=== PATIENT | female | born 1985 | race Caucasian/White ===

== ENCOUNTER 2019-07-31 04:52 | Inpatient (IN) | payer BC ==
[~2019-07-31 04:52] MED LIST: Lidocaine 2% with EPINEPHrine 1:200,000 20 ML SDV ONE
[2019-07-31] MEDS ORDERED: Sodium Chloride 0.9% 10 ML Syringe FLUSH PRN (07:06)
[2019-07-31] MEDS ORDERED: Oxytocin/Lactated Ringers 20 UNIT/1,000 ML BAG IV SCH (07:15)
[2019-07-31] MEDS ORDERED: Oxytocin/Lactated Ringers 10 UNIT/1,000 ML BAG IV SCH ×2 (07:15→08:00)
--- NOTE | 2019-07-31 07:54 | PCM.LDHP ---
L&D History of Present Illness - General Date of Service: 07/31/19 Admit Problem/Dx: Patient Status Order with Admit Dx/Problem 07/31/19 07:06 Patient Status [ADT] Routine Admission Diagnosis/Problem Admission Diagnosis/Problem Source of Information: Patient History Limitations: Reports: No Limitations - History of Present Illness Introduction:: 33 y/o MIKE 07/24/2019 EGA 41w0d presented to L&D for attempted TOLAC/ first delivery section Regressing maternal fever. Second delivery was a 6 lbs. 4 oz. first delivery weight 6 lbs. 8 oz. Patient understands risk of disruption of uterine scar emergency section. Aside ultrasound confirms cephalic presentation floating at present time not able ruptured membranes. Cervix is 1-2 cm dilated long soft posterior. 12/31/18 blood type O-positive, hemoglobin/hematocrit 13.2/38.4, or bone immune, urine culture no growth after 2 days, he surface antigen negative, HIV negative , GC chlamydia probe negative. 04/25/19 hemoglobin/hematocrit 11.0/33.2, platelets 253,000. OB glucose screen 122. VDRL nonreactive. 07/01/19 group B strep negative. Plan induction of labor utilizing Pitocin dilute solution (not candidate for Cytotec because previous uterine scar) Improves with: Reports: None Worsens with: Reports: None Associated Symptoms: Reports: N - Related Data Allergies/Adverse Reactions: Allergies Allergy/AdvReac Type Severity Reaction Status Date / Time shellfish derived Allergy Difficulty Verified 06/14/16 01:39 Breathing Home Medications: Home Meds No.116/Iron/Folic/Dha [Expecta Combo Pack] 1 each PO DAILY [History] Ibuprofen [IJD: Ibuprofen] 600 mg PO Q4H PRN #30 tablet 06/15/16 [Rx] Past Medical History - Past Health History Medical/Surgical History: Denies Medical/Surgical History - Past Surgical History Other Female Surgeries/Procedures: breast augmentation Social & Family History - Family History Family Medical History: Noncontributory - Caffeine Use Caffeine Use: Reports: None H&P Review of Systems - Review of Systems: Review Of Systems: See Below General: Reports: No Symptoms HEENT: Reports: No Symptoms Pulmonary: Reports: No Symptoms Cardiovascular: Reports: No Symptoms Gastrointestinal: Reports: No Symptoms Genitourinary: Reports: No Symptoms Musculoskeletal: Reports: No Symptoms Skin: Reports: No Symptoms Psychiatric: Reports: No Symptoms Neurological: Reports: No Symptoms Hematologic/Lymphatic: Reports: No Symptoms Immunologic: Reports: No Symptoms L&D Exam - Exam Exam: See Below - OB Specific Fundal Height In cm: 40 Movement: Active Heart Tones: Present Heart Tones per Min: 145 Heart Rate (FHR) Variability: Moderate (6-25 bmp) Presentation: Vertex (Floating and confirmed by bedside ultrasound is vertex) - Best Score Best Score Cervix Position: Posterior Best Score Consistency: Soft Best Score Effacement: 0-30% Best Score Dilation: 1-2 cm Best Score Infant's Station: -3 Best Score Total: 3 - Exam General: Alert, Oriented HEENT: Conjunctiva Clear, Mucosa Moist & [place] Neck: Supple, Trachea Midline Lungs: Clear to Auscultation, Normal Respiratory Effort Cardiovascular: Regular Rate, Regular Rhythm GI/Abdominal Exam: Normal Bowel Sounds, Soft, Non-Tender Genitourinary: Normal external exam Extremities: Normal Inspection, Non-Tender, No Pedal Edema, Normal Capillary Refill Skin: Warm, Dry, Intact Psychiatric: Alert, Normal Affect, Normal Mood - Patient Data Lab Results Last 24 hrs: Laboratory Results - last 24 hr 07/31/19 Range/Units 07:15 WBC 13.90 H (3.98-10.04) K/mm3 RBC 4.01 (3.98-5.22) M/mm3 Hgb 12.4 (11.2-15.7) gm/dl Hct 37.6 (34.1-44.9) % MCV 93.8 (79.4-94.8) fl MCH 30.9 (25.6-32.2) pg MCHC 33.0 (32.2-35.5) g/dl RDW Std Deviation 42.9 (36.4-46.3) fL Plt Count 257 (182-369) K/mm3 MPV 9.8 (9.4-12.3) fl Neut % (Auto) 72.6 H (34.0-71.1) % Lymph % (Auto) 16.2 L (19.3-51.7) % [place] % (Auto) 8.5 (4.7-12.5) % Eos % (Auto) 1.4 (0.7-5.8) Baso % (Auto) 0.2 (0.1-1.2) % Neut # (Auto) 10.10 H (1.56-6.13) K/mm3 Lymph # (Auto) 2.25 (1.18-3.74) K/mm3 [place] # (Auto) 1.18 H (0.24-0.36) K/mm3 Eos # (Auto) 0.19 (0.04-0.36) K/mm3 Baso # (Auto) 0.03 (0.01-0.08) K/mm3 Result Diagrams: 07/31/19 07:15 - Problem List (1) 41 weeks gestation of SNOMED Code(s): 76385242 ICD Code: Z3A.41 - 41 WEEKS GESTATION OF Status: Acute Current Visit: Yes (2) History of delivery, currently SNOMED Code(s): 323410372, 971374261 ICD Code: O34.219 - MATERNAL CARE FOR UNSP TYPE SCAR FROM PREVIOUS DEL Status: Acute Current Visit: Yes Problem List Initiated/Reviewed/Updated: No Orders Last 24hrs: Active Orders 24 hr Category Date Time Status Patient Status [ADT] Routine ADT 07/31/19 07:06 Active Activity as Tolerated [RC] PFP Care 07/31/19 07:06 Active Communication Order [RC] ASDIRECTED Care 07/31/19 07:06 Active Heart Tones [RC] ASDIRECTED Care 07/31/19 07:07 Active Non Stress Test [RC] PER UNIT ROUTINE Care 07/31/19 07:06 Active Notify Provider [RC] PFP Care 07/31/19 07:06 Active Notify Provider [RC] PRN Care 07/31/19 07:06 Active Peripheral IV Care [RC] . DIRECTED Care 07/31/19 07:07 Active Vital Signs [RC] PER UNIT ROUTINE Care 07/31/19 07:06 Active Regular Diet [DIET] Diet 07/31/19 Breakfast Active RAPID PLASMA REAGIN,RPR [CHEM] Routine Lab 07/31/19 07:15 Received TYPE AND SCREEN [BBK] Stat Lab 07/31/19 07:15 Received Lactated Ringers [Ringers, Lactated] 1,000 ml Med 07/31/19 07:15 Active IV ASDIRECTED Oxytocin/Lactated Ringers [Pitocin in LR 10 Units/1,000 Med 07/31/19 07:15 Active ML] 10 unit in 1,000 ml IV .CONTINUOUS Oxytocin/Lactated Ringers [Pitocin in LR 20 Units/1,000 Med 07/31/19 07:15 Active ML] 20 unit in 1,000 ml IV .CONTINUOUS Sodium Chloride 0.9% [Saline Flush] Med 07/31/19 07:06 Active 10 ml FLUSH ASDIRECTED PRN Electronic Heart Tones Ext w TOCO [WOMSER] Oth 07/31/19 07:06 Ordered Routine Electronic Heart Tones Internal [WOMSER] Per Unit Ot 07/31/19 07:06 Ordered Routine Peripheral IV Insertion Adult [OM.PC] Routine Ot 07/31/19 07:06 Ordered Resuscitation Status Routine Resus Stat 07/31/19 07:06 Ordered Medication Orders Lactated Ringer's (Ringers, Lactated) 1,000 mls @ 100 mls/hr IV ASDIRECTED RIP Oxytocin/Lactated Ringer's (Pitocin In Lr 10 Units/1,000 Ml) 10 unit in 1,000 mls @ 100 mls/hr IV .CONTINUOUS RIP Oxytocin/Lactated Ringer's (Pitocin In Lr 20 Units/1,000 Ml) 20 unit in 1,000 mls @ 500 mls/hr IV .CONTINUOUS RIP Sodium Chloride (Saline Flush) 10 ml FLUSH ASDIRECTED PRN PRN Reason: Keep Vein Open Assessment/Plan Comment:: Induction of labor section if necessary. Consent obtained for section
[2019-07-31] MEDS: Lactated Ringers 1,000 ML IV SCH ×3 (07:57→12:55)
--- NOTE | 2019-07-31 12:17 | PCM.SN ---
- Free Text/Narrative Note: Cervix 2 cm, 50 %, soft, mid-position, vertex -1, amniotomy at 1205 thickWill get epidural placed soon meconium.
[2019-07-31] MEDS ORDERED: ePHEDrine 50 MG/ML SDV IVPUSH PRN (12:25)
[2019-07-31] MEDS ORDERED: Bupivacaine/fentaNYL/NS 100 ML Bag EPIDUR PRN (12:25)
[2019-07-31] MEDS ORDERED: diphenhydrAMINE 50 MG/ML SDV IVPUSH PRN (12:25)
[2019-07-31] MEDS ORDERED: fentaNYL 100 MCG/2 ML SDV EPIDUR PRN (12:25)
--- NOTE | 2019-07-31 12:39 | PCM.PREANE ---
Preanesthetic Assessment - Anesthesia/Transfusion/Family Hx Anesthesia History: Prior Anesthesia Without Reaction Transfusion History: No Prior Transfusion(s) Type of Transfusion Reactions: Reports: Unknown - Review of Systems General: No Symptoms Pulmonary: No Symptoms Cardiovascular: No Symptoms Gastrointestinal: No Symptoms Neurological: No Symptoms Other: Reports: None - Physical Assessment Vital Signs: Last Vital Signs Temp 98.1 F 07/31/19 07:06 Pulse Resp 12 07/31/19 07:06 BP 116/62 07/31/19 07:06 Pulse Ox Height: 1.7 m Weight: 80.739 kg ASA Class: 2 Mental Status: Alert & Oriented x3 Airway Class: Mallampati = 3 Dentition: Reports: Normal Dentition Thyro-Mental Finger Breadths: 3 Mouth Opening Finger Breadths: 3 ROM/Head Extension: Full Lungs: Clear to Auscultation, Normal Respiratory Effort Cardiovascular: Regular Rate, Regular Rhythm - Lab Values: Laboratory Last Values WBC 13.90 K/mm3 (3.98-10.04) H 07/31/19 07:15 RBC 4.01 M/mm3 (3.98-5.22) 07/31/19 07:15 Hgb 12.4 gm/dl (11.2-15.7) 07/31/19 07:15 Hct 37.6 % (34.1-44.9) 07/31/19 07:15 MCV 93.8 fl (79.4-94.8) 07/31/19 07:15 MCH 30.9 pg (25.6-32.2) 07/31/19 07:15 MCHC 33.0 g/dl (32.2-35.5) 07/31/19 07:15 RDW Std Deviation 42.9 fL (36.4-46.3) 07/31/19 07:15 Plt Count 257 K/mm3 (182-369) 07/31/19 07:15 MPV 9.8 fl (9.4-12.3) 07/31/19 07:15 Neut % (Auto) 72.6 % (34.0-71.1) H 07/31/19 07:15 Lymph % (Auto) 16.2 % (19.3-51.7) L 07/31/19 07:15 Yell % (Auto) 8.5 % (4.7-12.5) 07/31/19 07:15 Eos % (Auto) 1.4 (0.7-5.8) 07/31/19 07:15 Baso % (Auto) 0.2 % (0.1-1.2) 07/31/19 07:15 Neut # (Auto) 10.10 K/mm3 (1.56-6.13) H 07/31/19 07:15 Lymph # (Auto) 2.25 K/mm3 (1.18-3.74) 07/31/19 07:15 [place] # (Auto) 1.18 K/mm3 (0.24-0.36) H 07/31/19 07:15 Eos # (Auto) 0.19 K/mm3 (0.04-0.36) 07/31/19 07:15 Baso # (Auto) 0.03 K/mm3 (0.01-0.08) 07/31/19 07:15 Blood Type O POSITIVE 07/31/19 07:15 Gel Antibody Screen Negative 07/31/19 07:15 - Allergies Allergies/Adverse Reactions: Allergies Allergy/AdvReac Type Severity Reaction Status Date / Time shellfish derived Allergy Difficulty Verified 07/31/19 09:01 Breathing - Acknowledgements Anesthesia Type Planned: Epidural Pt an Appropriate Candidate for the Planned Anesthesia: Yes Alternatives and Risks of Anesthesia Discussed w Pt/Guardian: Yes Pt/Guardian Understands and Agrees with Anesthesia Plan: Yes PreAnesthesia Questionnaire - Past Health History Medical/Surgical History: Denies Medical/Surgical History [employer] History: Reports: - Past Surgical History Other Female Surgeries/Procedures: breast augmentation - SUBSTANCE USE Smoking Status *Q: Never Smoker Second Hand Smoke Exposure: No Recreational Drug Use History: No - HOME MEDS Home Medications: Home Meds No.116/Iron/Folic/Dha [Expecta Combo Pack] 1 each PO DAILY [History] - CURRENT (IN HOUSE) MEDS Current Meds: Current Medications Diphenhydramine HCl (Benadryl) 25 mg IVPUSH Q6H PRN PRN Reason: pruritis Ephedrine Sulfate (Ephedrine Sulfate) 5 mg IVPUSH ASDIRECTED PRN PRN Reason: Hypotension Fentanyl (Sublimaze) 100 mcg EPIDUR Q3H PRN PRN Reason: Pain Fentanyl/Bupivacaine HCl (Fentanyl/Bupivacaine/Ns 2 Mcg-0.125% 100 Ml) 100 ml EPIDUR ASDIRECTED PRN PRN Reason: Pain Lactated Ringer's (Ringers, Lactated) 1,000 mls @ 100 mls/hr IV ASDIRECTED RIP Last Admin: 07/31/19 12:16 Dose: 100 mls/hr Oxytocin/Lactated Ringer's (Pitocin In Lr 10 Units/1,000 Ml) 10 unit in 1,000 mls @ 100 mls/hr IV .CONTINUOUS RIP Oxytocin/Lactated Ringer's (Pitocin In Lr 20 Units/1,000 Ml) 20 unit in 1,000 mls @ 500 mls/hr IV .CONTINUOUS RIP Oxytocin/Lactated Ringer's (Pitocin In Lr 10 Units/1,000 Ml) 10 unit in 1,000 mls @ 12 mls/hr IV TITRATE RIP; Protocol Last Titration: 07/31/19 12:17 Dose: 5 munits/min, 30 mls/hr Sodium Chloride (Saline Flush) 10 ml FLUSH ASDIRECTED PRN PRN Reason: Keep Vein Open
[2019-07-31] MEDS ORDERED: Ondansetron 4 MG/2 ML SDV IVPUSH PRN (15:00)
--- NOTE | 2019-07-31 15:37 | PCM.SN ---
- Free Text/Narrative Note: Cervix 5 cm, 80% effaced, soft, anterior, vertex -1. Epidural good relief. Cat I FHR at present.
--- NOTE | 2019-07-31 18:11 | PCM.DEL ---
L & D Note - General Info Date of Service: 07/31/19 Mother's Due Date: 07/24/19 - Delivery Note Labor: Augmented by ARM, Induced by Oxytocin Delivery Outcome: Livebirth (male Monday07/31/2019 1754 hrs ANGEL wt 3700 g/8# 2.5 oz APGARs 9/9) Infant Delivery Method: Spontaneous Vaginal Delivery-Single Delivery Mode: Spontaneous () Presentation: Left Occiput Anterior (ANGEL) (Floating and confirmed by bedside ultrasound is vertex) Nuchal Cord: None Prep: Povidone-Iodine (Betadine Anesthesia Type: Combined Spinal Epidural Amniotic Fluid Description: Meconium Stained Episiotomy Type: None Laceration: None Placenta: Intact, Spontaneous (175507/31/2019 Examined intact) Cord: 3 Vessels Estimated Blood Loss: 250 Resuscitation Needed: No Provider: Jesus Weiner (Dr Ibis Bailey present) Score 1 min: 9 Score 5 min: 9 Induction Criteria - Best Score Best Score Dilation: 1-2 cm Best Score Effacement: 40-50% Best Score Infant's Station: -3 Best Score Consistency: Soft Best Score Cervix Position: Posterior Best Score Total: 4 Best Score Presenting Part: Reports: Cephalic - Induction Gestational Age >/= 39 wks: Yes Estimated Pelvis: Reports: Adequate Reassuring Monitoring Strip: Yes Absence of Tachy Systole: Yes - Augmentation Estimated Pelvis: Reports: Adequate Weight Estimated:: Reports: AGA Reassuring Monitoring Strip: Yes Absence of Tachy Systole: Yes - General Info Date of Service: 07/31/19 Functional Status: Reports: Pain Controlled - Review of Systems General: Reports: No Symptoms HEENT: Reports: No Symptoms Pulmonary: Reports: No Symptoms Cardiovascular: Reports: No Symptoms Gastrointestinal: Reports: No Symptoms Genitourinary: Reports: No Symptoms Musculoskeletal: Reports: No Symptoms Skin: Reports: No Symptoms Neurological: Reports: No Symptoms Psychiatric: Reports: No Symptoms - Patient Data Vitals - Most Recent: Last Vital Signs Temp 98.1 F 07/31/19 07:06 Pulse Resp 12 07/31/19 07:06 BP 116/62 07/31/19 07:06 Pulse Ox Weight - Most Recent: 178 lb I&O - Last 24 Hours: Intake & Output 07/31/19 07/31/19 07/31/19 06:59 14:59 22:59 Intake Total 120 Balance 120 Lab Results Last 24 Hours: Laboratory Results - last 24 hr 07/31/19 07/31/19 Range/Units 07:15 07:15 WBC 13.90 H (3.98-10.04) K/mm3 RBC 4.01 (3.98-5.22) M/mm3 Hgb 12.4 (11.2-15.7) gm/dl Hct 37.6 (34.1-44.9) % MCV 93.8 (79.4-94.8) fl MCH 30.9 (25.6-32.2) pg MCHC 33.0 (32.2-35.5) g/dl RDW Std Deviation 42.9 (36.4-46.3) fL Plt Count 257 (182-369) K/mm3 MPV 9.8 (9.4-12.3) fl Neut % (Auto) 72.6 H (34.0-71.1) % Lymph % (Auto) 16.2 L (19.3-51.7) % [place] % (Auto) 8.5 (4.7-12.5) % Eos % (Auto) 1.4 (0.7-5.8) Baso % (Auto) 0.2 (0.1-1.2) % Neut # (Auto) 10.10 H (1.56-6.13) K/mm3 Lymph # (Auto) 2.25 (1.18-3.74) K/mm3 [place] # (Auto) 1.18 H (0.24-0.36) K/mm3 Eos # (Auto) 0.19 (0.04-0.36) K/mm3 Baso # (Auto) 0.03 (0.01-0.08) K/mm3 Blood Type O POSITIVE Gel Antibody Screen Negative Med Orders - Current: Current Medications Diphenhydramine HCl (Benadryl) 25 mg IVPUSH Q6H PRN PRN Reason: pruritis Ephedrine Sulfate (Ephedrine Sulfate) 5 mg IVPUSH ASDIRECTED PRN PRN Reason: Hypotension Fentanyl (Sublimaze) 100 mcg EPIDUR Q3H PRN PRN Reason: Pain Last Admin: 07/31/19 12:52 Dose: 100 mcg Fentanyl/Bupivacaine HCl (Fentanyl/Bupivacaine/Ns 2 Mcg-0.125% 100 Ml) 100 ml EPIDUR ASDIRECTED PRN PRN Reason: Pain Last Admin: 07/31/19 12:53 Dose: 100 ml Lactated Ringer's (Ringers, Lactated) 1,000 mls @ 100 mls/hr IV ASDIRECTED RIP Last Admin: 07/31/19 12:55 Dose: 100 mls/hr Oxytocin/Lactated Ringer's (Pitocin In Lr 10 Units/1,000 Ml) 10 unit in 1,000 mls @ 100 mls/hr IV .CONTINUOUS RIP Oxytocin/Lactated Ringer's (Pitocin In Lr 20 Units/1,000 Ml) 20 unit in 1,000 mls @ 500 mls/hr IV .CONTINUOUS RIP Oxytocin/Lactated Ringer's (Pitocin In Lr 10 Units/1,000 Ml) 10 unit in 1,000 mls @ 12 mls/hr IV TITRATE RIP; Protocol Last Titration: 07/31/19 16:09 Dose: 4 munits/min, 24 mls/hr Ondansetron HCl (Zofran) 4 mg IVPUSH Q8H PRN PRN Reason: Nausea Last Admin: 07/31/19 15:03 Dose: 4 mg Sodium Chloride (Saline Flush) 10 ml FLUSH ASDIRECTED PRN PRN Reason: Keep Vein Open - Exam General: Alert, Oriented HEENT: Pupils Equal, Mucous Membr. Moist/[place] Neck: Supple Lungs: Clear to Auscultation, Normal Respiratory Effort Cardiovascular: Regular Rate, Regular Rhythm GI/Abdominal Exam: Normal Bowel Sounds, Soft, Non-Tender (Female) Exam: Normal External Exam Extremities: Normal Inspection, Non-Tender, No Pedal Edema, Normal Capillary Refill Skin: Warm, Dry, Intact Psy/Mental Status: Alert, Normal Affect, Normal Mood - Problem List & Annotations (1) 41 weeks gestation of SNOMED Code(s): 90583934 Code(s): Z3A.41 - 41 WEEKS GESTATION OF Status: Acute Current Visit: Yes (2) History of delivery, currently SNOMED Code(s): 078685633, 736277022 Code(s): O34.219 - MATERNAL CARE FOR UNSP TYPE SCAR FROM PREVIOUS DEL Status: Acute Current Visit: Yes (3) Meconium in amniotic fluid affecting management of mother in third trimester SNOMED Code(s): 94927002, 02264296 Code(s): O36.8930 - MATERNAL CARE FOR OTH PROBLEMS, THIRD TRIMESTER, UNSP Status: Acute Current Visit: Yes Qualifiers: Fetus number: single or unspecified fetus Qualified Code(s): O36.8930 - Maternal care for other specified problems, third trimester, not applicable or unspecified - Problem List Review Problem List Initiated/Reviewed/Updated: No - My Orders Last 24 Hours: My Active Orders 07/31/19 07:06 Patient Status [ADT] Routine Activity as Tolerated [RC] PFP Communication Order [RC] ASDIRECTED Non Stress Test [RC] PER UNIT ROUTINE Notify Provider [RC] PFP Notify Provider [RC] PRN Vital Signs [RC] PER UNIT ROUTINE Sodium Chloride 0.9% [Saline Flush] 10 ml FLUSH ASDIRECTED PRN Electronic Heart Tones Ext w TOCO [WOMSER] Routine Electronic Heart Tones Internal [WOMSER] Per Unit Routine Peripheral IV Insertion Adult [OM.PC] Routine Resuscitation Status Routine 07/31/19 07:07 Heart Tones [RC] ASDIRECTED Peripheral IV Care [RC] . DIRECTED 07/31/19 07:15 RAPID PLASMA REAGIN,RPR [CHEM] Routine Lactated Ringers [Ringers, Lactated] 1,000 ml IV ASDIRECTED Oxytocin/Lactated Ringers [Pitocin in LR 10 Units/1,000 ML] 10 unit in 1,000 ml IV .CONTINUOUS Oxytocin/Lactated Ringers [Pitocin in LR 20 Units/1,000 ML] 20 unit in 1,000 ml IV .CONTINUOUS 07/31/19 08:00 Oxytocin/Lactated Ringers [Pitocin in LR 10 Units/1,000 ML] 10 unit in 1,000 ml IV TITRATE 07/31/19 15:00 Ondansetron [Zofran] 4 mg IVPUSH Q8H PRN 07/31/19 Breakfast Regular Diet [DIET] - Plan Plan:: Induction of labor section if necessary. Consent obtained for section
[2019-07-31] MEDS ORDERED: Acetaminophen 325 MG Tab PO PRN (18:53)
[2019-07-31] MEDS ORDERED: Benzocaine/Menthol 20%-0.5% Spray 56 GM Canister TOP PRN (18:53)
[2019-07-31] MEDS ORDERED: Docusate Sodium 100 MG Cap PO PRN (18:53)
[2019-07-31] MEDS ORDERED: Witch Hazel Medicated Pads 40/Jar TOP PRN (18:53)
[2019-07-31] MEDS: Ibuprofen 600 MG Tab PO PRN (22:00)
--- NOTE | 2019-08-01 07:27 | PCM48HPAN ---
Post Anesthesia Note - EVALUATION WITHIN 48HRS OF ANESTHETIC Vital Signs in Normal Range: Yes Patient Participated in Evaluation: Yes Respiratory Function Stable: Yes Airway Patent: Yes Cardiovascular Function Stable: Yes Hydration Status Stable: Yes Pain Control Satisfactory: Yes Nausea and Vomiting Control Satisfactory: Yes Mental Status Recovered: Yes Vital Signs: Last Vital Signs Temp 36.6 C 07/31/19 22:58 Pulse 71 08/01/19 03:37 Resp 15 08/01/19 03:37 BP 106/58 L 08/01/19 03:37 Pulse Ox 98 08/01/19 03:37 - COMMENTS/OBSERVATIONS Free Text/Narrative:: Preethi has been up walking the halls with no complaints. No further questions at this time. No anesthetic complications noted.
--- NOTE | 2019-08-01 07:43 | PCM.DCSUM1 ---
Discharge Summary - Hospital Course Free Text/Narrative:: [facility] LIVE L/D Delivery Note Patient Name: IZZY BUCKNER Date of : 81 Patient Status: Inpatient Attending Provider: Jesus Weiner Date: 07/31/19 18:06 Initialization Date: 07/31/19 18:06 L & D Note - General Info Date of Service: 07/31/19 Mother's Due Date: 07/24/19 - Delivery Note Labor: Augmented by ARM, Induced by Oxytocin Delivery Outcome: Livebirth (male Monday07/31/2019 1754 hrs ANGEL wt 3700 g/8# 2.5 oz APGARs 9/9) Delivery Method: Spontaneous Vaginal Delivery-Single Infant Delivery Mode: Spontaneous () Presentation: Left Occiput Anterior (ANGEL) (Floating and confirmed by bedside ultrasound is vertex) Nuchal Cord: None Prep: Povidone-Iodine (Betadine Anesthesia Type: Combined Spinal Epidural Amniotic Fluid Description: Meconium Stained Episiotomy Type: None Laceration: None Placenta: Intact, Spontaneous (175507/31/2019 Examined intact) Cord: 3 Vessels Estimated Blood Loss: 250 Resuscitation Needed: No Provider: Jesus Weiner (Dr Ibis jimenes) Score 1 min: 9 Score 5 min: 9 Induction Criteria - Best Score Best Score Dilation: 1-2 cm Best Score Effacement: 40-50% Best Score 's Station: -3 Best Score Consistency: Soft Best Score Cervix Position: Posterior Best Score Total: 4 Best Score Presenting Part: Reports: Cephalic - Induction Gestational Age >/= 39 wks: Yes Estimated Pelvis: Reports: Adequate Reassuring Monitoring Strip: Yes Absence of Tachy Systole: Yes - Augmentation Estimated Pelvis: Reports: Adequate Weight Estimated:: Reports: AGA Reassuring Monitoring Strip: Yes Absence of Tachy Systole: Yes - General Info Date of Service: 07/31/19 Functional Status: Reports: Pain Controlled - Review of Systems General: Reports: No Symptoms HEENT: Reports: No Symptoms Pulmonary: Reports: No Symptoms Cardiovascular: Reports: No Symptoms Gastrointestinal: Reports: No Symptoms Genitourinary: Reports: No Symptoms Musculoskeletal: Reports: No Symptoms Skin: Reports: No Symptoms Neurological: Reports: No Symptoms Psychiatric: Reports: No Symptoms - Patient Data Vitals - Most Recent: Last Vital Signs Temp 98.1 F 07/31/19 07:06 Pulse Resp 12 07/31/19 07:06 BP 116/62 07/31/19 07:06 Pulse Ox Weight - Most Recent: 178 lb I&O - Last 24 Hours: Intake & Output 07/31/19 07/31/19 07/31/19 06:59 14:59 22:59 Intake Total 120 Balance 120 Lab Results Last 24 Hours: Laboratory Results - last 24 hr 07/31/19 07/31/19 Range/Units 07:15 07:15 WBC 13.90 H (3.98-10.04) K/mm3 RBC 4.01 (3.98-5.22) M/mm3 Hgb 12.4 (11.2-15.7) gm/dl Hct 37.6 (34.1-44.9) % MCV 93.8 (79.4-94.8) fl MCH 30.9 (25.6-32.2) pg MCHC 33.0 (32.2-35.5) g/dl RDW Std Deviation 42.9 (36.4-46.3) fL Plt Count 257 (182-369) K/mm3 MPV 9.8 (9.4-12.3) fl Neut % (Auto) 72.6 H (34.0-71.1) % Lymph % (Auto) 16.2 L (19.3-51.7) % [place] % (Auto) 8.5 (4.7-12.5) % Eos % (Auto) 1.4 (0.7-5.8) Baso % (Auto) 0.2 (0.1-1.2) % Neut # (Auto) 10.10 H (1.56-6.13) K/mm3 Lymph # (Auto) 2.25 (1.18-3.74) K/mm3 [place] # (Auto) 1.18 H (0.24-0.36) K/mm3 Eos # (Auto) 0.19 (0.04-0.36) K/mm3 Baso # (Auto) 0.03 (0.01-0.08) K/mm3 Blood Type O POSITIVE Gel Antibody Screen Negative Med Orders - Current: Current Medications Diphenhydramine HCl (Benadryl) 25 mg IVPUSH Q6H PRN PRN Reason: pruritis Ephedrine Sulfate (Ephedrine Sulfate) 5 mg IVPUSH ASDIRECTED PRN PRN Reason: Hypotension Fentanyl (Sublimaze) 100 mcg EPIDUR Q3H PRN PRN Reason: Pain Last Admin: 07/31/19 12:52 Dose: 100 mcg Fentanyl/Bupivacaine HCl (Fentanyl/Bupivacaine/Ns 2 Mcg-0.125% 100 Ml) 100 ml EPIDUR ASDIRECTED PRN PRN Reason: Pain Last Admin: 07/31/19 12:53 Dose: 100 ml Lactated Ringer's (Ringers, Lactated) 1,000 mls @ 100 mls/hr IV ASDIRECTED RIP Last Admin: 07/31/19 12:55 Dose: 100 mls/hr Oxytocin/Lactated Ringer's (Pitocin In Lr 10 Units/1,000 Ml) 10 unit in 1,000 mls @ 100 mls/hr IV .CONTINUOUS RIP Oxytocin/Lactated Ringer's (Pitocin In Lr 20 Units/1,000 Ml) 20 unit in 1,000 mls @ 500 mls/hr IV .CONTINUOUS RIP Oxytocin/Lactated Ringer's (Pitocin In Lr 10 Units/1,000 Ml) 10 unit in 1,000 mls @ 12 mls/hr IV TITRATE RIP; Protocol Last Titration: 07/31/19 16:09 Dose: 4 munits/min, 24 mls/hr Ondansetron HCl (Zofran) 4 mg IVPUSH Q8H PRN PRN Reason: Nausea Last Admin: 07/31/19 15:03 Dose: 4 mg Sodium Chloride (Saline Flush) 10 ml FLUSH ASDIRECTED PRN PRN Reason: Keep Vein Open - Exam General: Alert, Oriented HEENT: Pupils Equal, Mucous Membr. Moist/[place] Neck: Supple Lungs: Clear to Auscultation, Normal Respiratory Effort Cardiovascular: Regular Rate, Regular Rhythm GI/Abdominal Exam: Normal Bowel Sounds, Soft, Non-Tender (Female) Exam: Normal External Exam Extremities: Normal Inspection, Non-Tender, No Pedal Edema, Normal Capillary Refill Skin: Warm, Dry, Intact Psy/Mental Status: Alert, Normal Affect, Normal Mood - Problem List & Annotations (1) 41 weeks gestation of SNOMED Code(s): 28578334 Code(s): Z3A.41 - 41 WEEKS GESTATION OF Status: Acute Current Visit: Yes (2) History of delivery, currently SNOMED Code(s): 996246984, 119279565 Code(s): O34.219 - MATERNAL CARE FOR UNSP TYPE SCAR FROM PREVIOUS DEL Status: Acute Current Visit: Yes (3) Meconium in amniotic fluid affecting management of mother in third trimester SNOMED Code(s): 09416450, 52145836 Code(s): O36.8930 - MATERNAL CARE FOR OTH PROBLEMS, THIRD TRIMESTER, UNSP Status: Acute Current Visit: Yes Qualifiers: Fetus number: single or unspecified fetus Qualified Code(s): O36.8930 - Maternal care for other specified problems, third trimester, not applicable or unspecified - Problem List Review Problem List Initiated/Reviewed/Updated: No - My Orders Last 24 Hours: My Active Orders 07/31/19 07:06 Patient Status [ADT] Routine Activity as Tolerated [RC] PFP Communication Order [RC] ASDIRECTED Non Stress Test [RC] PER UNIT ROUTINE Notify Provider [RC] PFP Notify Provider [RC] PRN Vital Signs [RC] PER UNIT ROUTINE Sodium Chloride 0.9% [Saline Flush] 10 ml FLUSH ASDIRECTED PRN Electronic Heart Tones Ext w TOCO [WOMSER] Routine Electronic Heart Tones Internal [WOMSER] Per Unit Routine Peripheral IV Insertion Adult [OM.PC] Routine Resuscitation Status Routine 07/31/19 07:07 Heart Tones [RC] ASDIRECTED Peripheral IV Care [RC] . DIRECTED 07/31/19 07:15 RAPID PLASMA REAGIN,RPR [CHEM] Routine Lactated Ringers [Ringers, Lactated] 1,000 ml IV ASDIRECTED Oxytocin/Lactated Ringers [Pitocin in LR 10 Units/1,000 ML] 10 unit in 1,000 ml IV .CONTINUOUS Oxytocin/Lactated Ringers [Pitocin in LR 20 Units/1,000 ML] 20 unit in 1,000 ml IV .CONTINUOUS 07/31/19 08:00 Oxytocin/Lactated Ringers [Pitocin in LR 10 Units/1,000 ML] 10 unit in 1,000 ml IV TITRATE 07/31/19 15:00 Ondansetron [Zofran] 4 mg IVPUSH Q8H PRN 07/31/19 Breakfast Regular Diet [DIET] - Plan Plan:: Induction of labor section if necessary. Consent obtained for section HPI Initial Comments: [facility] LIVE L/D Delivery Note Patient Name: IZZY BUCKNER Date of : 81 Patient Status: Inpatient Attending Provider: Jesus Weiner Date: 07/31/19 18:06 Initialization Date: 07/31/19 18:06 L & D Note - General Info Date of Service: 07/31/19 Mother's Due Date: 07/24/19 - Delivery Note Labor: Augmented by ARM, Induced by Oxytocin Delivery Outcome: Livebirth (male Monday07/31/2019 1754 hrs ANGEL wt 3700 g/8# 2.5 oz APGARs 9/9) Delivery Method: Spontaneous Vaginal Delivery-Single Delivery Mode: Spontaneous () Presentation: Left Occiput Anterior (ANGEL) (Floating and confirmed by bedside ultrasound is vertex) Nuchal Cord: None Prep: Povidone-Iodine (Betadine Anesthesia Type: Combined Spinal Epidural Amniotic Fluid Description: Meconium Stained Episiotomy Type: None Laceration: None Placenta: Intact, Spontaneous (175507/31/2019 Examined intact) Cord: 3 Vessels Estimated Blood Loss: 250 Resuscitation Needed: No Provider: Jesus Weiner (Dr Ibis jimenes) Score 1 min: 9 Score 5 min: 9 Induction Criteria - Best Score Best Score Dilation: 1-2 cm Best Score Effacement: 40-50% Best Score Infant's Station: -3 Best Score Consistency: Soft Best Score Cervix Position: Posterior Best Score Total: 4 Best Score Presenting Part: Reports: Cephalic - Induction Gestational Age >/= 39 wks: Yes Estimated Pelvis: Reports: Adequate Reassuring Monitoring Strip: Yes Absence of Tachy Systole: Yes - Augmentation Estimated Pelvis: Reports: Adequate Weight Estimated:: Reports: AGA Reassuring Monitoring Strip: Yes Absence of Tachy Systole: Yes - General Info Date of Service: 07/31/19 Functional Status: Reports: Pain Controlled - Review of Systems General: Reports: No Symptoms HEENT: Reports: No Symptoms Pulmonary: Reports: No Symptoms Cardiovascular: Reports: No Symptoms Gastrointestinal: Reports: No Symptoms Genitourinary: Reports: No Symptoms Musculoskeletal: Reports: No Symptoms Skin: Reports: No Symptoms Neurological: Reports: No Symptoms Psychiatric: Reports: No Symptoms - Patient Data Vitals - Most Recent: Last Vital Signs Temp 98.1 F 07/31/19 07:06 Pulse Resp 12 07/31/19 07:06 BP 116/62 07/31/19 07:06 Pulse Ox Weight - Most Recent: 178 lb I&O - Last 24 Hours: Intake & Output 07/31/19 07/31/19 07/31/19 06:59 14:59 22:59 Intake Total 120 Balance 120 Lab Results Last 24 Hours: Laboratory Results - last 24 hr 07/31/19 07/31/19 Range/Units 07:15 07:15 WBC 13.90 H (3.98-10.04) K/mm3 RBC 4.01 (3.98-5.22) M/mm3 Hgb 12.4 (11.2-15.7) gm/dl Hct 37.6 (34.1-44.9) % MCV 93.8 (79.4-94.8) fl MCH 30.9 (25.6-32.2) pg MCHC 33.0 (32.2-35.5) g/dl RDW Std Deviation 42.9 (36.4-46.3) fL Plt Count 257 (182-369) K/mm3 MPV 9.8 (9.4-12.3) fl Neut % (Auto) 72.6 H (34.0-71.1) % Lymph % (Auto) 16.2 L (19.3-51.7) % [place] % (Auto) 8.5 (4.7-12.5) % Eos % (Auto) 1.4 (0.7-5.8) Baso % (Auto) 0.2 (0.1-1.2) % Neut # (Auto) 10.10 H (1.56-6.13) K/mm3 Lymph # (Auto) 2.25 (1.18-3.74) K/mm3 [place] # (Auto) 1.18 H (0.24-0.36) K/mm3 Eos # (Auto) 0.19 (0.04-0.36) K/mm3 Baso # (Auto) 0.03 (0.01-0.08) K/mm3 Blood Type O POSITIVE Gel Antibody Screen Negative Med Orders - Current: Current Medications Diphenhydramine HCl (Benadryl) 25 mg IVPUSH Q6H PRN PRN Reason: pruritis Ephedrine Sulfate (Ephedrine Sulfate) 5 mg IVPUSH ASDIRECTED PRN PRN Reason: Hypotension Fentanyl (Sublimaze) 100 mcg EPIDUR Q3H PRN PRN Reason: Pain Last Admin: 07/31/19 12:52 Dose: 100 mcg Fentanyl/Bupivacaine HCl (Fentanyl/Bupivacaine/Ns 2 Mcg-0.125% 100 Ml) 100 ml EPIDUR ASDIRECTED PRN PRN Reason: Pain Last Admin: 07/31/19 12:53 Dose: 100 ml Lactated Ringer's (Ringers, Lactated) 1,000 mls @ 100 mls/hr IV ASDIRECTED RIP Last Admin: 07/31/19 12:55 Dose: 100 mls/hr Oxytocin/Lactated Ringer's (Pitocin In Lr 10 Units/1,000 Ml) 10 unit in 1,000 mls @ 100 mls/hr IV .CONTINUOUS RIP Oxytocin/Lactated Ringer's (Pitocin In Lr 20 Units/1,000 Ml) 20 unit in 1,000 mls @ 500 mls/hr IV .CONTINUOUS RIP Oxytocin/Lactated Ringer's (Pitocin In Lr 10 Units/1,000 Ml) 10 unit in 1,000 mls @ 12 mls/hr IV TITRATE RIP; Protocol Last Titration: 07/31/19 16:09 Dose: 4 munits/min, 24 mls/hr Ondansetron HCl (Zofran) 4 mg IVPUSH Q8H PRN PRN Reason: Nausea Last Admin: 07/31/19 15:03 Dose: 4 mg Sodium Chloride (Saline Flush) 10 ml FLUSH ASDIRECTED PRN PRN Reason: Keep Vein Open - Exam General: Alert, Oriented HEENT: Pupils Equal, Mucous Membr. Moist/[place] Neck: Supple Lungs: Clear to Auscultation, Normal Respiratory Effort Cardiovascular: Regular Rate, Regular Rhythm GI/Abdominal Exam: Normal Bowel Sounds, Soft, Non-Tender (Female) Exam: Normal External Exam Extremities: Normal Inspection, Non-Tender, No Pedal Edema, Normal Capillary Refill Skin: Warm, Dry, Intact Psy/Mental Status: Alert, Normal Affect, Normal Mood - Problem List & Annotations (1) 41 weeks gestation of SNOMED Code(s): 72153736 Code(s): Z3A.41 - 41 WEEKS GESTATION OF Status: Acute Current Visit: Yes (2) History of delivery, currently SNOMED Code(s): 063324638, 596078643 Code(s): O34.219 - MATERNAL CARE FOR UNSP TYPE SCAR FROM PREVIOUS DEL Status: Acute Current Visit: Yes (3) Meconium in amniotic fluid affecting management of mother in third trimester SNOMED Code(s): 52736170, 64840844 Code(s): O36.8930 - MATERNAL CARE FOR OTH PROBLEMS, THIRD TRIMESTER, UNSP Status: Acute Current Visit: Yes Qualifiers: Fetus number: single or unspecified fetus Qualified Code(s): O36.8930 - Maternal care for other specified problems, third trimester, not applicable or unspecified - Problem List Review Problem List Initiated/Reviewed/Updated: No - My Orders Last 24 Hours: My Active Orders 07/31/19 07:06 Patient Status [ADT] Routine Activity as Tolerated [RC] PFP Communication Order [RC] ASDIRECTED Non Stress Test [RC] PER UNIT ROUTINE Notify Provider [RC] PFP Notify Provider [RC] PRN Vital Signs [RC] PER UNIT ROUTINE Sodium Chloride 0.9% [Saline Flush] 10 ml FLUSH ASDIRECTED PRN Electronic Heart Tones Ext w TOCO [WOMSER] Routine Electronic Heart Tones Internal [WOMSER] Per Unit Routine Peripheral IV Insertion Adult [OM.PC] Routine Resuscitation Status Routine 07/31/19 07:07 Heart Tones [RC] ASDIRECTED Peripheral IV Care [RC] . DIRECTED 07/31/19 07:15 RAPID PLASMA REAGIN,RPR [CHEM] Routine Lactated Ringers [Ringers, Lactated] 1,000 ml IV ASDIRECTED Oxytocin/Lactated Ringers [Pitocin in LR 10 Units/1,000 ML] 10 unit in 1,000 ml IV .CONTINUOUS Oxytocin/Lactated Ringers [Pitocin in LR 20 Units/1,000 ML] 20 unit in 1,000 ml IV .CONTINUOUS 07/31/19 08:00 Oxytocin/Lactated Ringers [Pitocin in LR 10 Units/1,000 ML] 10 unit in 1,000 ml IV TITRATE 07/31/19 15:00 Ondansetron [Zofran] 4 mg IVPUSH Q8H PRN 07/31/19 Breakfast Regular Diet [DIET] - Plan Plan:: Induction of labor section if necessary. Consent obtained for section Brief History: [facility] LIVE . L/D Delivery Note. Patient Name: IZZY BUCKNERTXedical Record Number: [id number]. Date of : Patient Status: Inpatient. Attending Provider: Jesus Weiner Number: [id number]. Date: 07/31/19 18:06Initialization Date: 07/31/19 18:06. L & D Note. - General Info. Date of Service: 07/31/19. Mother's Due Date: 07/24/19. - Delivery Note. Labor: Augmented by ARM, Induced by Oxytocin. Delivery Outcome: Livebirth (male Monday07/31/2019 1754 hrs ANGEL wt 3700 g/8# 2.5 oz APGARs 9/9). Infant Delivery Method: Spontaneous Vaginal Delivery- Single. Delivery Mode: Spontaneous (). Presentation: Left Occiput Anterior (ANGEL) (Floating and confirmed by bedside ultrasound is vertex) . Nuchal Cord: None. Prep: Povidone-Iodine (Betadine. Anesthesia Type: Combined Spinal Epidural. Amniotic Fluid Description: Meconium Stained. Episiotomy Type: None. Laceration: None. Placenta: Intact, Spontaneous (175507/31/2019 Examined intact). Cord: 3 Vessels. Estimated Blood Loss: 250. Resuscitation Needed: No. Provider: Jesus Weiner (Dr Ibis jimenes). Score 1 min: 9. Score 5 min: 9. Induction Criteria. - Best Score. Best Score Dilation: 1-2 cm. Best Score Effacement: 40-50%. Best Score 's Station: -3. Best Score Consistency: Soft. Best Score Cervix Position: Posterior. Best Score Total : 4. Best Score Presenting Part: Reports: Cephalic. - Induction. Gestational Age >/= 39 wks: Yes. Estimated Pelvis: Reports: Adequate. Reassuring Monitoring Strip: Yes. Absence of Tachy Systole: Yes. - Augmentation. Estimated Pelvis: Reports: Adequate. Weight Estimated:: Reports: AGA. Reassuring Monitoring Strip: Yes. Absence of Tachy Systole : Yes. - General Info. Date of Service: 07/31/19. Functional Status: Reports : Pain Controlled. - Review of Systems. General: Reports: No Symptoms. HEENT : Reports: No Symptoms. Pulmonary: Reports: No Symptoms. Cardiovascular: Reports: No Symptoms. Gastrointestinal: Reports: No Symptoms. Genitourinary: Reports: No Symptoms. Musculoskeletal: Reports: No Symptoms. Skin: Reports: No Symptoms. Neurological: Reports: No Symptoms. Psychiatric: Reports: No Symptoms. - Patient Data. Vitals - Most Recent: Last Vital Signs. Temp 98.1 F 07/31/19 07:06. Pulse. Resp 12 07/31/19 07:06. BP 116/62 07/31/19 07: 06. Pulse Ox. Weight - Most Recent: 178 lb. I&O - Last 24 Hours: Intake & Output. 07/31/2001/. 06:5914:5922:59. Intake Qsohg477. [id number]. Lab Results Last 24 Hours: Laboratory Results - last 24 hr. 07/31Range/Units. 07:1507:15. WBC 13.90 H (3.98-10.04) K/mm3. RBC 4.01 (3.98-5.22) M/mm3. Hgb 12.4 (11.2-15.7) gm/dl. Hct 37.6 (34.1-44.9) % . MCV 93.8 (79.4-94.8) fl. MCH 30.9 (25.6-32.2) pg. MCHC 33.0 (32.2-35.5) g/dl. RDW Std Deviation 42.9 (36.4-46.3) fL. Plt Count 257 (182-369) K/mm3. MPV 9.8 (9.4-12.3) fl. Neut % (Auto) 72.6 H (34.0-71.1) %. Lymph % (Auto) 16.2 L (19.3-51.7) %. [place] % (Auto) 8.5 (4.7-12.5) %. Eos % (Auto) 1.4 (0.7- 5.8). Baso % (Auto) 0.2 (0.1-1.2) %. Neut # (Auto) 10.10 H (1.56-6.13) K/ mm3. Lymph # (Auto) 2.25 (1.18-3.74) K/mm3. [place] # (Auto) 1.18 H (0.24-0.36) K/mm3. Eos # (Auto) 0.19 (0.04-0.36) K/mm3. Baso # (Auto) 0.03 (0.01-0.08) K/mm3. Blood Type O POSITIVE. Gel Antibody Screen Negative. Med Orders - Current: Current Medications. Diphenhydramine HCl (Benadryl) 25 mg IVPUSH Q6H PRN. PRN Reason: pruritis. Ephedrine Sulfate (Ephedrine Sulfate) 5 mg IVPUSH ASDIRECTED PRN. PRN Reason: Hypotension. Fentanyl (Sublimaze) 100 mcg EPIDUR Q3H PRN. PRN Reason: Pain. Last Admin: 07/31/19 12:52 Dose: 100 mcg. Fentanyl/Bupivacaine HCl (Fentanyl/Bupivacaine/Ns 2 Mcg-0.125% 100 Ml) 100 ml EPIDUR ASDIRECTED PRN. PRN Reason: Pain. Last Admin: 07/31/19 12:53 Dose: 100 ml. Lactated Ringer's (Ringers, Lactated) 1,000 mls @ 100 mls/hr IV ASDIRECTED RIP. Last Admin: 07/31/19 12:55 Dose: 100 mls/hr. Oxytocin/ Lactated Ringer's (Pitocin In Lr 10 Units/1,000 Ml) 10 unit in 1,000 mls @ 100 mls/hr IV .CONTINUOUS RIP. Oxytocin/Lactated Ringer's (Pitocin In Lr 20 Units/1 ,000 Ml) 20 unit in 1,000 mls @ 500 mls/hr IV .CONTINUOUS RIP. Oxytocin/ Lactated Ringer's (Pitocin In Lr 10 Units/1,000 Ml) 10 unit in 1,000 mls @ 12 mls/hr IV TITRATE RIP; Protocol. Last Titration: 07/31/19 16:09 Dose: 4 munits /min, 24 mls/hr. Ondansetron HCl (Zofran) 4 mg IVPUSH Q8H PRN. PRN Reason: Nausea. Last Admin: 07/31/19 15:03 Dose: 4 mg. Sodium Chloride (Saline Flush ) 10 ml FLUSH ASDIRECTED PRN. PRN Reason: Keep Vein Open. - Exam. General: Alert, Oriented. HEENT: Pupils Equal, Mucous Membr. Moist/[place]. Neck: Supple. Lungs: Clear to Auscultation, Normal Respiratory Effort. Cardiovascular: Regular Rate, Regular Rhythm. GI/Abdominal Exam: Normal Bowel Sounds, Soft, Non -Tender. (Female) Exam: Normal External Exam. Extremities: Normal Inspection, Non-Tender, No Pedal Edema, Normal Capillary Refill. Skin: Warm, Dry, Intact. Psy/Mental Status: Alert, Normal Affect, Normal Mood. - Problem List & Annotations. (1) 41 weeks gestation of . SNOMED Code(s): 98055076. Code(s): Z3A.41 - 41 WEEKS GESTATION OF Status: Acute Current Visit: Yes. (2) History of delivery, currently . SNOMED Code(s): 310114870, 005316254. Code(s): O34.219 - MATERNAL CARE FOR UNSP TYPE SCAR FROM PREVIOUS DEL Status: Acute Current Visit: Yes. (3) Meconium in amniotic fluid affecting management of mother in third trimester. SNOMED Code(s): 47370416, 36128892. Code(s): O36.8930 - MATERNAL CARE FOR OTH PROBLEMS, THIRD TRIMESTER, UNSP Status: Acute Current Visit: Yes. Qualifiers: Fetus number: single or unspecified fetus Qualified Code(s): O36.8930 - Maternal care for other specified problems, third trimester, not applicable or unspecified. - Problem List Review. Problem List Initiated/Reviewed/Updated: No. - My Orders. Last 24 Hours: My Active Orders. 07/31/19 07:06. Patient Status [ADT] Routine. Activity as Tolerated [ RC] PFP. Communication Order [RC] ASDIRECTED. Non Stress Test [RC] PER UNIT ROUTINE. Notify Provider [RC] PFP. Notify Provider [RC] PRN. Vital Signs [RC] PER UNIT ROUTINE. Sodium Chloride 0.9% [Saline Flush] 10 ml FLUSH ASDIRECTED PRN. Electronic Heart Tones Ext w TOCO [WOMSER] Routine. Electronic Heart Tones Internal [WOMSER] Per Unit Routine. Peripheral IV Insertion Adult [OM.PC] Routine. Resuscitation Status Routine. 07/31/19 07: 07. Heart Tones [RC] ASDIRECTED. Peripheral IV Care [RC] . DIRECTED. 07/31/19 07:15. RAPID PLASMA REAGIN,RPR [CHEM] Routine. Lactated Ringers [ Ringers, Lactated] 1,000 ml IV ASDIRECTED. Oxytocin/Lactated Ringers [Pitocin in LR 10 Units/1,000 ML] 10 unit in 1,000 ml IV .CONTINUOUS. Oxytocin/Lactated Ringers [Pitocin in LR 20 Units/1,000 ML] 20 unit in 1,000 ml IV .CONTINUOUS. 07/31/19 08:00. Oxytocin/Lactated Ringers [Pitocin in LR 10 Units/1,000 ML] 10 unit in 1,000 ml IV TITRATE. 07/31/19 15:00. Ondansetron [Zofran] 4 mg IVPUSH Q8H PRN. 07/31/19 Breakfast. Regular Diet [DIET]. - Plan. Plan:: Induction of labor section if necessary. Consent obtained for section Diagnosis: Stroke: No - Discharge Data Discharge Date: 08/01/19 Discharge Disposition: Home, Self-Care 01 Condition: Good - Referral to Home Health Primary Care Physician: Jesus Weinre MD - Discharge Diagnosis/Problem(s) (1) 41 weeks gestation of SNOMED Code(s): 81950930 ICD Code: Z3A.41 - 41 WEEKS GESTATION OF Status: Acute Current Visit: Yes (2) History of delivery, currently SNOMED Code(s): 890746539, 649853956 ICD Code: O34.219 - MATERNAL CARE FOR UNSP TYPE SCAR FROM PREVIOUS DEL Status: Acute Current Visit: Yes (3) Meconium in amniotic fluid affecting management of mother in third trimester SNOMED Code(s): 96726460, 25658567 ICD Code: O36.8930 - MATERNAL CARE FOR OTH PROBLEMS, THIRD TRIMESTER, UNSP Status: Acute Current Visit: Yes Qualifiers: Fetus number: single or unspecified fetus Qualified Code(s): O36.8930 - Maternal care for other specified problems, third trimester, not applicable or unspecified - Patient Summary/Data Complications: None Consults: None Hospital Course: Uneventful - Patient Instructions Diet: Usual Diet as Tolerated Showering/Bathing: October Shower Notify Provider of: Fever, Increased Pain, Swelling and Redness, Drainage, Nausea and/or Vomiting - Discharge Plan Home Medications: Home Meds No.116/Iron/Folic/Dha [Expecta Combo Pack] 1 each PO DAILY [History] Acetaminophen [Tylenol] 650 mg PO Q6H PRN tablet 08/01/19 [Rx] Docusate Sodium [Colace] 100 mg PO BID PRN cap 08/01/19 [Rx] Ibuprofen [Motrin] 600 mg PO Q6H PRN tablet 08/01/19 [Rx] witch Rocio [Tucks] 1 pad TOP ASDIRECTED PRN pad 08/01/19 [Rx] Referrals: Scott Heart MD [Physician] - (2 weeks) - Discharge Summary/Plan Comment DC Time >30 min.: No - Patient Data Vitals - Most Recent: Last Vital Signs Temp 97.9 F 07/31/19 22:58 Pulse 71 08/01/19 03:37 Resp 15 08/01/19 03:37 BP 106/58 L 08/01/19 03:37 Pulse Ox 98 08/01/19 03:37 Weight - Most Recent: 178 lb I&O - Last 24 hours: Intake & Output 07/31/19 08/01/19 08/01/19 22:59 06:59 14:59 Output Total 1200 Balance -1200 Lab Results - Last 24 hrs: Laboratory Results - last 24 hr 07/31/19 07/31/19 08/01/19 Range/Units 07:15 07:15 05:55 WBC 16.91 H (3.98-10.04) K/mm3 RBC 3.59 L (3.98-5.22) M/mm3 Hgb 11.2 (11.2-15.7) gm/dl Hct 34.1 (34.1-44.9) % MCV 95.0 H (79.4-94.8) fl MCH 31.2 (25.6-32.2) pg MCHC 32.8 (32.2-35.5) g/dl RDW Std Deviation 43.1 (36.4-46.3) fL Plt Count 215 (182-369) K/mm3 MPV 10.0 (9.4-12.3) fl Neut % (Auto) 75.9 H (34.0-71.1) % Lymph % (Auto) 14.0 L (19.3-51.7) % [place] % (Auto) 8.8 (4.7-12.5) % Eos % (Auto) 0.7 (0.7-5.8) Baso % (Auto) 0.2 (0.1-1.2) % Neut # (Auto) 12.85 H (1.56-6.13) K/mm3 Lymph # (Auto) 2.36 (1.18-3.74) K/mm3 [place] # (Auto) 1.48 H (0.24-0.36) K/mm3 Eos # (Auto) 0.12 (0.04-0.36) K/mm3 Baso # (Auto) 0.03 (0.01-0.08) K/mm3 RPR Non-reactive (NONREACTIVE) Blood Type O POSITIVE Gel Antibody Screen Negative Med Orders - Current: Current Medications Acetaminophen (Tylenol) 650 mg PO Q4H PRN PRN Reason: mild pain or fever Benzocaine/Menthol (Dermoplast Pain Relief [place]) 0 gm TOP ASDIRECTED PRN PRN Reason: Perineal Comfort Measure Docusate Sodium (Colace) 100 mg PO BID PRN PRN Reason: Constipation Ibuprofen (Motrin) 600 mg PO Q4H PRN PRN Reason: Mild pain or fever Last Admin: 07/31/19 22:00 Dose: 600 mg Witch [place] (Tucks) 1 pad TOP ASDIRECTED PRN PRN Reason: Perineal Comfort Measure Discontinued Medications Diphenhydramine HCl (Benadryl) 25 mg IVPUSH Q6H PRN PRN Reason: pruritis Ephedrine Sulfate (Ephedrine Sulfate) 5 mg IVPUSH ASDIRECTED PRN PRN Reason: Hypotension Fentanyl (Sublimaze) 100 mcg EPIDUR Q3H PRN PRN Reason: Pain Last Admin: 07/31/19 12:52 Dose: 100 mcg Fentanyl/Bupivacaine HCl (Fentanyl/Bupivacaine/Ns 2 Mcg-0.125% 100 Ml) 100 ml EPIDUR ASDIRECTED PRN PRN Reason: Pain Last Admin: 07/31/19 12:53 Dose: 100 ml Lactated Ringer's (Ringers, Lactated) 1,000 mls @ 100 mls/hr IV ASDIRECTED RIP Last Admin: 07/31/19 12:55 Dose: 100 mls/hr Oxytocin/Lactated Ringer's (Pitocin In Lr 10 Units/1,000 Ml) 10 unit in 1,000 mls @ 100 mls/hr IV .CONTINUOUS RIP Oxytocin/Lactated Ringer's (Pitocin In Lr 20 Units/1,000 Ml) 20 unit in 1,000 mls @ 500 mls/hr IV .CONTINUOUS RIP Oxytocin/Lactated Ringer's (Pitocin In Lr 10 Units/1,000 Ml) 10 unit in 1,000 mls @ 12 mls/hr IV TITRATE RIP; Protocol Last Titration: 07/31/19 17:55 Dose: 500 munits/min, 3,000 mls/hr Ondansetron HCl (Zofran) 4 mg IVPUSH Q8H PRN PRN Reason: Nausea Last Admin: 07/31/19 15:03 Dose: 4 mg Sodium Chloride (Saline Flush) 10 ml FLUSH ASDIRECTED PRN PRN Reason: Keep Vein Open
[2019-08-01] MEDS: Ibuprofen 600 MG Tab PO PRN ×2 (09:40→18:17)
[2019-08-01 21:18] VITALS: BP 106/75; PULSE 79
== END 2019-08-01 21:00 | disposition home or self-care (01) | DRG 560 ==
LOC: JD.OB 06:55 → OBSVTOIN 17:54 → JD.OB 17:54
PROVIDERS: ADMIT Obstetrics & Gynecology; ATTEND Obstetrics & Gynecology
PROC: 10E0XZZ Delivery of Products of Conception, External Approach (ICD-10-PCS; principal; 2019-07-31)
PROC: 10907ZC Drainage of Amniotic Fluid, Therapeutic from Products of Conception, Via Natural or Artificial Opening (ICD-10-PCS; 2019-07-31)
PROC: 3E033VJ Introduction of Other Hormone into Peripheral Vein, Percutaneous Approach (ICD-10-PCS; 2019-07-31)
PROC: 3E0R3BZ Introduction of Anesthetic Agent into Spinal Canal, Percutaneous Approach (ICD-10-PCS; 2019-07-31)
DX: O48.0 Post-term pregnancy (principal); O77.0 Labor and delivery complicated by meconium in amniotic fluid; Z3A.41 41 weeks gestation of pregnancy; Z37.0 Single live birth; Z91.013 Allergy to seafood
CPT/HCPCS: 36415; 51702; 59025; 59409; 85025; 86592; 86850; 86900; 86901; A9270-GY; J2405; J2590; J3010; J7120